=== PATIENT | female | born 1965 | race Two or more races ===

== ENCOUNTER 2018-05-14 09:58 | Day surgery (SDC) | payer OTHER | END 2018-05-14 16:45 | disposition home or self-care (01) | LOC: AMB-ENDOS 09:58 | DX: K64.8 Other hemorrhoids (principal); Z12.11 Encounter for screening for malignant neoplasm of colon; Z83.71 Family history of colonic polyps; Z80.0 Family history of malignant neoplasm of digestive organs; R19.4 Change in bowel habit ==